=== PATIENT | female | born 1975 | race Caucasian/White ===

== ENCOUNTER 2022-11-27 07:26 | Outpatient (CLI) | payer MEDICARE, MEDICAID ==
[2022-11-27] MEDS ORDERED: Magnevist 469MG/ML 20 ML VIAL ONE (11:17)
== END 2022-11-27 07:27 | disposition home or self-care (01) ==
LOC: BICMRI 07:26
PROVIDERS: ATTEND Physician Assistant Medical
DX: K86.2 Cyst of pancreas (principal); R97.8 Other abnormal tumor markers
CPT/HCPCS: 74183